=== PATIENT | male | born 2000 | race Caucasian/White ===

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

== ENCOUNTER 2021-10-21 17:07 | Emergency (ER) | payer MEDICAID, SELFPAY ==
[2021-10-21 17:08] VITALS: BP 138/78; PULSE 101; RESP 18; TEMP 36.6; O2SAT 99; BMI 36.6
--- NOTE | 2021-10-21 17:22 | EX.ED.DYSGE1 ---
HPI History of Present Illness Chief Complaint: Nausea/Vomiting Informant: patient Onset/Context/Timing Onset: Today Context: Gradual Onset Current Severity: Mild Maximum Severity: Moderate Narrative Narrative: Patient presents secondary to nausea, vomiting, diarrhea. Symptoms started this morning. He states his sibling recently had similar symptoms and his girlfriend started to develop symptoms as well. No fevers been noted. He complains of pain across the umbilical region of the abdomen. No blood noted in the stool. PFSH PFSH Medical History Anxiety Depression Non-smoker Home Medications dicyclomine 20 mg tablet 20 mg PO TID PRN abdominal cramping #14 tabs 10/21/21 [Rx Last Taken Unknown] omeprazole magnesium 20 mg tablet,delayed release (Prilosec OTC) 20 mg PO DAILY #14 tabs 10/21/21 [Rx Last Taken Unknown] ondansetron 4 mg disintegrating tablet 4 mg PO Q8H PRN nausea and vomiting #10 tabs 10/21/21 [Rx Last Taken Unknown] Allergy/AdvReac Type Severity Reaction Status Date / Time amoxicillin [Amoxicillin] Allergy Hives Verified 10/21/21 17:09 Social History Smoking Status: Never smoker ROS ROS ED Constitutional Constitutional ED: Denies chills or fever(s) Eyes Eyes: Denies change in vision or discharge from eye(s) ENT ENT ED: Denies discharge from eye(s), rhinorrhea or sore throat Cardiovascular Cardiovascular: Denies chest pain or palpitations Respiratory/Chest Respiratory/Chest: Denies cough or dyspnea Gastrointestinal Gastrointestinal: Reports abdominal pain, diarrhea, nausea and vomiting Genitourinary Genitourinary ED: Denies difficulty urinating or dysuria Musculoskeletal Musculoskeletal: Denies back pain or extremity pain Integumentary Denies Abrasions or rash Neurologic Neurologic: Denies headache(s) or weakness Psychiatric Psychiatric: Denies anxiety or depression Allergic/Immunologic Allergic/Immunologic ED: Denies lip swelling or urticaria EXAM Physical Exam Const Vital Signs: 10/21/21 17:08 Temperature 97.9 F Temperature Source Temporal Pulse Rate 101 H Respiratory Rate 18 Blood Pressure 138/78 H Blood Pressure Mean 98 Pulse Ox 99 Oxygen Delivery Method Room Air Positive well nourished and well developed General Appearance ED: well developed HEENT Reports normocephalic and head/scalp atraumatic Eyes PERRL and EOMs intact bilaterally Neck supple Chest Wall inspection of chest normal and palpation of chest normal Resp normal respiratory effort and clear to auscultation bilaterally Cardio regular rate and regular rhythm GI non-tender Auscultation: hypoactive bowel sounds Palpation: soft Extremity normal to inspection Neuro oriented x3 and no sensory deficits noted Sensorium / Orientation: alert Motor Exam: strength 5/5 throughout Psych mental status grossly normal Skin no rashes or lesions noted MDM MDM MDM Narrative Medical decision making narrative: Patient given IV fluids along with Bentyl, Pepcid, Zofran. Lab work and urinalysis obtained. Lab Data Attestation: I reviewed the patient's lab results. Labs: Laboratory Results - last 24 hr 10/21/21 10/21/21 10/21/21 17:30 17:30 17:32 WBC 6.0 RBC 5.55 Hgb 15.2 Hct 46.0 MCV 82.9 MCH 27.4 MCHC 33.0 RDW Std Deviation 38.5 RDW Coeff of David 12.7 Plt Count 263 MPV 10.0 Immature Gran % (Auto) 0.300 Neut % (Auto) 85.1 H Lymph % (Auto) 8.4 L [place] % (Auto) 6.0 Eos % (Auto) 0.0 Baso % (Auto) 0.2 Absolute Neuts (auto) 5.1 Absolute Lymphs (auto) 0.50 L Nucleated RBC % 0 Differential Comment SCANNED Sodium 141 Potassium 3.6 Chloride 106 Carbon Dioxide 29.0 Anion Gap 6 BUN 11 Creatinine 1.06 Estim Creat Clear Calc 113.82 Est GFR (MDRD) Af Amer 113 Est GFR (MDRD) Non-Af 94 BUN/Creatinine Ratio 10.4 Glucose 107 H Calcium 9.2 Total Bilirubin 0.90 Direct Bilirubin 0.21 AST 24 ALT 59 Alkaline Phosphatase 86 Total Protein 7.0 Albumin 4.1 Globulin 2.9 Lipase 96 Urine Color Yellow Urine Clarity Clear Urine pH 6.0 Ur Specific [place] 1.015 Urine Protein 15 H Urine Glucose (UA) Normal Urine Ketones 15 H Urine Occult Blood Negative Urine Nitrite Negative Urine Bilirubin Negative Urine Urobilinogen 1 H Ur Leukocyte Esterase Negative Urine RBC 0-5 SEEN Urine WBC 0-5 SEEN Ur Squamous Epith Cells 0 SEEN Urine Bacteria 1+ Urine Mucus 1+ Treatment and Re-Evaluation Narrative: Lab work is unremarkable. Urinalysis reveals only 15 ketones. On repeat evaluation patient does feel improved. He is tolerating p.o. fluids. He will be given prescriptions for Zofran, Bentyl, Prilosec. Return instructions provided Discharge Plan Triage Chief Complaint: Nausea/Vomiting ED Provider: Radha Ross Dx/Rx/DC Orders Clinical Impression: Viral gastroenteritis Instructions: ED Gastroenteritis, Viral (Adult) Prescriptions: New ondansetron 4 mg tablet,disintegrating 4 mg PO Q8H PRN (Reason: nausea and vomiting) Qty: 10 0RF dicyclomine 20 mg tablet 20 mg PO TID PRN (Reason: abdominal cramping) Qty: 14 0RF omeprazole magnesium [Prilosec OTC] 20 mg tablet,delayed release (DR/EC) 20 mg PO DAILY Qty: 14 0RF Stand Alone Forms: ED Work / School Excuse Primary Care Provider: Josué Tam Referrals: Josué Tam MD [Primary Care Provider] - 3-5 Days if not improving Disposition Disposition: Home, Self Care
[2021-10-21] MEDS: Dicyclomine 20 MG/2 ML Vial IM (17:30)
[2021-10-21] MEDS: Ondansetron 4 MG/2 ML Vial IV (17:30)
[2021-10-21] MEDS: 0.9% Normal Saline 1,000 ML 999 ML IV (17:30)
[2021-10-21] MEDS: Famotidine 200 MG/20 ML MDV 20 MG in 0.9% Normal Saline (Pres. free 8 ML 300 MG IV (17:37)
[2021-10-21 17:38] LABS: Squamous Epithelial Cells - UA 0 SEEN /hpf (0-5)
[2021-10-21 17:39] LABS: Absolute Neutrophil Count 5.1 X10^3/uL (2.0-7.7); Basophil# 0.01 X10^3/uL; Basophil% 0.2 % (0-1); Hemoglobin 15.2 g/dL (13.0-16.5); Lymphocyte % 8.4 % (19-41); Mean Corpuscular Hgb 27.4 pg (27.0-32.0); Mean Corpuscular Volume 82.9 fL (80-94); Monocyte# 0.36 X10^3/uL; NRBC Flagged by Analyzer 0 % (0-5); Neutrophil # 5.08 X10^3/uL (2.7-7.7); Neutrophil % 85.1 % (47-70); POSITIVE DIFFERENTIAL YES; Platelet Count 263 K/mm3 (150-450); RBC Distribution Width CV 12.7 % (11.6-14.6); RBC Distribution Width SD 38.5 fl (35.1-43.9); Red Blood Count 5.55 M/mm3 (4.6-6.2)
[2021-10-21 17:50] LABS: Color, Urine Yellow (Yellow); Glucose, Dipstick Normal (Normal); Ketone-Dipstick 15 mg/dl (Negative); Leukocyte Esterase-Dipstick Negative /ul (Negative); Nitrite-Dipstick Negative (Negative); Occult Blood-Urine Negative /ul (Negative); Protein-Dipstick 15 mg/dl (Negative); Specific Gravity, Urine 1.015 (1.002-1.030); Urine Bilirubin Dipstick Negative (Negative); Urine Clarity Clear (Clear); Urine Urobilinogen 1 mg/dl (Normal)
[2021-10-21 17:57] LABS: AST(SGOT) 24 U/L (15-37); Alanine Aminotransfer ALT/SGPT 59 U/L (16-61); Albumin, Serum 4.1 g/dL (3.2-5.0); Alkaline Phosphatase 86 U/L (45-117); Anion Gap 6 (5-15); BUN 11 mg/dL (7-18); BUN/Creat Ratio 10.4 RATIO (10-20); Bilirubin, Direct 0.21 mg/dL (0.00-0.30); Calcium,Total 9.2 mg/dL (8.5-10.1); Chloride 106 mmol/L (98-107); Creatinine, Serum 1.06 mg/dL (0.70-1.30); EST Glomerular Filtration Rate 94 mL/min (>60); Est Glom Filt Rate - Afr Amer 113 mL/min (>60); Estimated Creatinine Clearance 113.82 ml/min; Globulin 2.9 g/dL (2.2-4.2); Glucose 107 mg/dL (74-106); Lipase 96 U/L (73-393); Potassium 3.6 mmol/L (3.5-5.1); Sodium Level 141 mmol/L (136-145)
[2021-10-21 18:21] LABS: Red Blood Cells-Urine 0-5 SEEN /hpf (0-5)
[2021-10-21 18:22] LABS: Bacteria 1+ /hpf (None Seen); Mucous, Urine 1+ /hpf (<or=2+); White Blood Cells 0-5 SEEN /hpf (0-5)
[2021-10-21 18:53] LABS: Differential Comment SCANNED; Differential Indicated SCAN CRITERIA MET
[2021-10-21 19:10] VITALS: BP 126/74; PULSE 86; RESP 15; O2SAT 100
== END 2021-10-21 19:10 | disposition home or self-care (01) ==
PROVIDERS: Emergency Provider Emergency Medicine; PCP Pediatrics; Visit Provider Emergency Medicine
DX: A08.4 Viral intestinal infection, unspecified (principal)
CPT/HCPCS: 80048; 80076; 81001; 83690; 85025; 96361; 96372; 96374; 96375; 99283; J7030; A4216; J2405; J3490

== ENCOUNTER 2022-03-29 20:02 | Emergency (ER) | payer MEDICAID, SELFPAY ==
[2022-03-29 20:02] VITALS: BP 120/99; PULSE 120; RESP 18; TEMP 36.6; O2SAT 99; BMI 34.4
--- NOTE | 2022-03-29 20:10 | RAD_ITS ---
STUDY: X-RAY - RIGHT KNEE REASON FOR EXAM: Male, 21 years old. INJURY, R knee pain TECHNIQUE: 3 view(s) of the knee. COMPARISON: None. FINDINGS: Normal visualized distal femur. Normal visualized proximal tibia and fibula. Normal proximal tibiofibular articulation. There is no demonstrated fracture. Normal medial femorotibial compartment. Normal lateral femorotibial compartment. Normal patellofemoral articulation. There is no demonstrated joint effusion. The soft tissue structures are unremarkable. RAD/Knee 3 Views IMPRESSION: Normal x-ray examination of the knee. Electronically Signed: Ever Mccoy MD at 20:29 EST ,
--- NOTE | 2022-03-29 20:22 | EDS_ITS ---
HPI History of Present Illness Chief Complaint: Lower Extremity Injury Narrative Narrative: 21-year-old male who denies significant past medical history presents with injury to his right knee. He states he was bowling, threw his ball, then twisted his right knee. He thinks his right knee went inward, and then came back out. He now complains of medial right knee pain that is worse with movement, and difficulty fully extending his knee or fully bending it. He denies falling, hitting his head, or other injury. PFSH PFSH Medical History Anxiety Depression Non-smoker Home Medications dicyclomine 20 mg tablet 20 mg PO TID PRN abdominal cramping #14 tabs 10/21/21 [Rx Last Taken Unknown] omeprazole magnesium 20 mg tablet,delayed release (Prilosec OTC) 20 mg PO DAILY #14 tabs 10/21/21 [Rx Last Taken Unknown] ondansetron 4 mg disintegrating tablet 4 mg PO Q8H PRN nausea and vomiting #10 tabs 10/21/21 [Rx Last Taken Unknown] Allergy/AdvReac Type Severity Reaction Status Date / Time amoxicillin [Amoxicillin] Allergy Hives Verified 03/29/22 20:05 Social History Smoking Status: Never smoker ROS ROS ED ROS Narrative Constitutional: No fever, no chills. HEENT: No sore throat. No neck pain. No loss of vision. No rhinorrhea. Cardiovascular: No chest pain. No palpitations. No pedal edema. Respiratory: No cough, no shortness of breath. Abdominal: No abdominal pain. No nausea. No vomiting. Genitourinary: No dysuria. No hematuria. Musculoskeletal: No myalgias. Right knee pain. Neurologic: No headaches. No dizziness. No lightheadedness. Skin: No rash. No change in color. Psychiatric: No depression. No anxiety. EXAM Physical Exam Narrative Exam Narrative: Afebrile. Vital signs noted. HEENT: Normocephalic. Atraumatic. PERRL, EOMI. Neck soft and supple. No point tenderness or step off. Cardiovascular: Regular rate and rhythm. No murmurs, rubs, or gallops appreciated. Respiratory: No tachypnea. Lungs clear to auscultation bilaterally. Gastrointestinal: Abdomen soft, nontender, with normoactive bowel sounds. No rebound or guarding. Neurological: Awake. Alert. Nonfocal, nonlateralizing. Skin: No rash. Normal color. No pallor. Musculoskeletal: No pedal edema. Flexion and extension mechanism intact right knee. Able to lift leg off bed. Mild tenderness to palpation along right medial collateral ligament and right medial meniscal line. No crepitance. Neur ovascular intact distally with palpable dorsalis pedis pulse. Const Vital Signs: 03/29/22 20:02 Temperature 97.9 F Temperature Source Temporal Pulse Rate 120 H Respiratory Rate 18 Blood Pressure 120/99 H Blood Pressure Mean 106 Pulse Ox 99 Oxygen Delivery Method Room Air MDM MDM MDM Narrative Medical decision making narrative: Nursing protocol ordered knee x-ray in 3 views which was interpreted by myself. Patient declined any oral analgesics. My interpretation of his x-ray shows no acute fracture, no effusion. He was placed in a knee immobilizer. Will take [id number] analgesics and follow-up with his primary care provider in 7 to 10 days. He was also given a pair of crutches because he states he was unable to walk with the knee immobilizer in place. I feel he can be discharged safely home with follow-up. He was referred to the orthopedic surgeon on-call to follow-up with as needed. Disposition is discharged home in stable condition. Radiography Diagnostic Testing: Clinical Impression(s) from Imaging Studies Knee X-Ray 03/29/22 20:10 IMPRESSION: Normal x-ray examination of the knee. Electronically Signed: Ever Mccoy MD at 20:29 EST , Discharge Plan Triage Chief Complaint: Lower Extremity Injury ED Provider: Darwin De La Vega Dx/Rx/DC Orders Clinical Impression: Right knee sprain, Arthralgia of knee, right Instructions: ED Meniscal Injury Knee Poss, ED Knee Sprain Prescriptions: No Action ondansetron 4 mg tablet,disintegrating 4 mg PO Q8H PRN (Reason: nausea and vomiting) Qty: 10 0RF dicyclomine 20 mg tablet 20 mg PO TID PRN (Reason: abdominal cramping) Qty: 14 0RF omeprazole magnesium [Prilosec OTC] 20 mg tablet,delayed release (DR/EC) 20 mg PO DAILY Qty: 14 0RF Stand Alone Forms: ED Work / School Excuse Primary Care Provider: Josué Tam Referrals: Josué Tam MD [Primary Care Provider] - 1 Week if not improving Soto Cassidy DO [Med Staff - Active Staff] - As Needed Disposition Disposition: Home, Self Care
== END 2022-03-29 21:15 | disposition home or self-care (01) ==
PROVIDERS: Emergency Provider Emergency Medicine; PCP Pediatrics; Visit Provider Emergency Medicine
DX: S83.91XA Sprain of unspecified site of right knee, initial encounter (principal); M17.11 Unilateral primary osteoarthritis, right knee; X50.1XXA Overexertion from prolonged static or awkward postures, initial encounter; F41.9 Anxiety disorder, unspecified; F32.9 Major depressive disorder, single episode, unspecified; Z79.899 Other long term (current) drug therapy
CPT/HCPCS: 73562; 99284

== ENCOUNTER → 2022-05-10 | Outpatient (CLI) | payer MEDICAID, SELFPAY ==
--- NOTE | 2022-05-10 07:16 | MRI_ITS ---
STUDY: MRI RIGHT KNEE REASON FOR EXAM: Male, 21 years old. twisting injury, medial pain TECHNIQUE: Standardized fat and water weighted pulse sequences were obtained in all 3 orthogonal planes. COMPARISON: X-ray of the right knee dated March 29, 2022 FINDINGS: There is a large bucket-handle tear involving the anterior horn and body and a portion of the posterior horn of the medial meniscus with a flipped fragment in the intercondylar notch. Normal hyaline cartilage of the medial femorotibial compartment. Normal medial femoral condyle and tibial plateau. Normal medial collateral ligamentous complex (MCL). Normal distal semimembranosus, gracilis and semitendinosus tendons. Normal lateral meniscus. Normal hyaline cartilage of the lateral femorotibial compartment. Normal lateral femoral condyle and tibial plateau. Normal proximal tibiofibular articulation. Normal lateral collateral (fibular) ligament. Normal popliteus tendon. Normal biceps femoris tendon. Normal anterior cruciate ligament (ACL). Normal posterior cruciate ligament (PCL). Normal congruent patellofemoral articulation. Normal hyaline cartilage of the patellofemoral compartment. Normal medial and lateral patellar retinaculum. Normal quadriceps tendon. Normal patellar tendon. Normal Hoffa''s fat pad. There is a small volume joint effusion. No marrow edema or fracture or osteochondral defect is present. The soft tissues are unremarkable. The otherwise visualized osseous structures are unremarkable. MRI/Lower Ext Joint Only (Routine) IMPRESSION: 1. Large bucket-handle tear of the medial meniscus Electronically Signed: Candido Preciado MD at 13:16 EST Reading Location ID and State: [facility] / [place] , Service support ,
== END | disposition home or self-care (01) ==
LOC: MRI 07:16
DX: M23.91 Unspecified internal derangement of right knee (principal)
CPT/HCPCS: 73721

== ENCOUNTER 2022-08-07 17:30 | Outpatient (RCR) | payer MEDICAID, SELFPAY ==
--- NOTE | 2022-06-07 18:53 | HP.PTEVAL ---
Patient's Visit Information SARAH CORONA is a 21 year old M referred to Physical Therapy by SILKE NORTON with a diagnosis of R medial meniscus tear s/p repair 05/24/22. Date of Evaluation: 06/07/22 Physical Therapist: Robin Day, DPT, OCS, CSCS - Visit Plan Frequency: 2-3x /Week Duration: 4-6 Weeks Plan: 2-3x/week for. Start currently 25% WB at most with brace locked until further notice from doctor. Start with ROM R knee to 90 until further notice., swelling management, patellar mobs, NWB strength, 25% WB gait training with crutches. ice. progress as released by doctor WB status, gait, strength and function. - Subjective Hurt R knee bowling months ago. Hurt for 11 months before surgery. Had surgery05/24/22 meniscal repair. Pain intermittent since then. Takes meds and lays down when he hurts but toss and turns. Wearing brace locked in extension. Will need to wear but not sure how long. Has ice machine at home. Using crutches all the time and NWB until further notice. Not sure when follow up and mom not present. Sleep is Ok some of time, decent, getting 2-3 at a time but has late disorder. Employed [employer] in [place] on feet but has been off since a month ago. Estimate time off 3 months. Doing AP at home and icing. Enjoys bowling and video games. No regular exercises when healthy. Basic ADLs dress and shower and bathroom OK except reaching R foot. Is 25% WB R on locked brace with crutches until f/u doctor next week - Pain R knee Pain Intensity (Out of 10): 6 Pain Intensity Range: 0, 6 - Objective Ambulates into PT with brace on and locked in extension and NWB R. Shown 25% WB and could do that with VC today and will work on that when painfree. Up and down steps with two rails NWB R. Transfers bed and chair I but hard time lifting R LE onto bed and painful to lift and to lie supine with extension moment at knee. Needed assist donning and doffing brace as he has not taken it off yet. L LE WNL and 4+ hip strength and ROM. flexibility R is hard to test due to limited ROM. R hip aROM WFL and strength flexion SLR 3- and painful with SLR needing Min A, abd is 3+ and ext 3+. knee flexion and extension not tested. ankle 4-/5 R and L. Swollen at knee R moderately, patella moves well but tender to move. - Balance/Special Test Scores Lower Extremity Functional Score: 27 - Goals Goal 1:: ST: 0-130 AROM as allowed by doctor without pain Goal Time Frame: 4-6 Weeks Goal 2:: Patient able to don and doff socks I Goal Time Frame: 2-4 Weeks Goal 3:: LT: Walks as allowed by doctor without gait deificts in community Goal Time Frame: 4-6 Weeks Goal 4:: Sleep without waking Goal Time Frame: 4-6 Weeks Goal 5:: steps reciprocally without rail Goal Time Frame: 4-6 Weeks Goal 6:: Plan to return to work. Goal Time Frame: 8-12 Weeks - Rehabilitation Potential Physical Therapy Diagnosis: R knee pain and stiffness and weakness after surgery limiting function. Rehabilitation Potential: Fair - Anticipated Interventions Patient/Client Instruction: Educate patient on: Condition, Plan of Care For the Purpose of:: To decrease pain, To increase ROM, To improve muscle performance and motor function, To increase tolerance to activity/condition/position, To improve ability of physical actions for home/community/work/leisure, To improve gait and locomotor functions, To improve balance, To improve safety with gait Therapeutic Exercise to Include: Strength training, Postural training, Flexibilty training, Gait and locomotor training, Passive ROM, Active ROM For the Purpose of:: To decrease pain, To increase ROM, To improve nutrient delivery to tissue, To improve muscle performance and motor function, To increase tolerance to activity/condition/position, To improve ability of physical actions for home/community/work/leisure, To improve gait and locomotor functions Manual Therapy Techniques to Include: Mobilization, Soft tissue mobilization For the Purpose of:: To decrease pain, To increase ROM, To improve nutrient delivery to tissue, To improve muscle performance and motor function Cryotherapy (ice pack, ice massage): Yes Vasopneumatic device: Yes For the Purpose of:: To decrease pain, To decrease swelling/inflammation, To improve nutrient delivery to tissue Thank you for the opportunity to evaluate your patient. For Medicare and Medicare HMO plans, please review the plan of care and approve it. It will need to be FAXED BACK to us at [phone] for Medicare purposes. For Medicare only, by signing this I certify the plan of care. Please let me know if there are questions or concerns regarding this plan of care. Physician Signature: Date:
--- NOTE | 2022-08-07 17:46 | HP.PTDCSUM_ITS ---
It has been my pleasure to treat SARAH CORONA referred by SILKE NORTON, with the diagnosis of R medial meniscus tear s/p repair 05/24/22 for a total of 21 visit(s). Discharge Date: 08/07/22 Please see the following information for a summary of their discharge status. Subjective: Jogged caught in rain without a problem. Activities are normal outs bill of work. hoping to get released right away for work. Feels ready this time to return to work. No brace needed lately. Doing exercises at home including HS, heel raises, SLR, pulling on band, inchworms. Wants to continue strength training at gym but has no money to afford. no car to get there. Wants to bowl eventually and golf. Feels like he can get back to them on his own if released by doctor. R knee Pain Intensity (Out of 10): 0 % Improvement: 95 Objective/Function: 0-140 AROM R knee. 0 ext lag with SLR, strong quad. walks normal, jogs slowly without problems. tight in hips with squat but able without pain 10x today. SL hop slightly less coordinated R vs L but able without pain. Steps reciprocally normally.No evidence of pain or compensation. Doing well. Goal 1:: ST: 0-130 AROM as allowed by doctor without pain Goal Progress: Goal Met Goal 2:: Patient able to don and doff socks I Goal Progress: Goal Met Goal 3:: LT: Walks as allowed by doctor without gait deificts in community Goal Progress: Goal Met Goal 4:: Sleep without waking Goal Progress: Goal Met Goal 5:: steps reciprocally without rail Goal Progress: Goal Met Goal 6:: Plan to return to work. Goal Progress: ready Plan: d/c, pt choice vs continuing for controlled jog, run, plyo, agility. wants to return to work and try on his own. will see doctor next week for release. Discharge Comments: To doctor next week and expecting release to work. If there are questions or concerns regarding this patient's physical therapy, please feel free to call me at [phone]. Thank you for the referral of this patient. Sincerely, Robin Day, DPT, OCS, CSCS Balance/Gait/Functional tests - Balance/Special Test Scores Lower Extremity Functional Score: 67
== END 2022-08-07 19:00 | disposition home or self-care (01) ==
LOC: PT 17:30
DX: S83.211D Bucket-handle tear of medial meniscus, current injury, right knee, subsequent encounter (principal)
CPT/HCPCS: 97110; 97162; 97164

== ENCOUNTER 2023-11-05 17:30 | Emergency (ER) | payer OTHER, SELFPAY ==
[2023-11-05 17:31] VITALS: BP 155/94; PULSE 100; RESP 16; TEMP 36.5; O2SAT 99; BMI 35.8
--- NOTE | 2023-11-05 17:41 | ED.RN ---
[facility]. I WAS INFORMED SHE IS ON HER WAY
--- NOTE | 2023-11-05 20:49 | EDS_ITS ---
HPI History of Present Illness Chief Complaint: Laceration Narrative Narrative: 23-year-old male who denies significant past medical history presents with laceration to his right hand that he sustained at work today. 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 He states that it was then when one of the got me. He had accidentally dragged his right hand, the back of his right hand, across one of the metal parts of the sign stands. He is right-hand dominant. He sustained a laceration on the distal metacarpal of his fifth digit on his right hand. He is unsure of his last tetanus immunization. He denies other injury. [facility] History Anxiety Depression Non-smoker Home Medications ?Medication ?Instructions ?Recorded ?Last Taken ?Type dicyclomine 20 mg tablet 20 mg PO TID PRN abdominal 10/21/21 Unknown Rx cramping #14 tabs omeprazole magnesium 20 mg 20 mg PO DAILY #14 tabs 10/21/21 Unknown Rx tablet,delayed release (Prilosec OTC) ondansetron 4 mg disintegrating 4 mg PO Q8H PRN nausea and 10/21/21 Unknown Rx tablet vomiting #10 tabs Allergy/AdvReac Type Severity Reaction Status Date / Time amoxicillin (Amoxicillin) Allergy Hives Verified 11/05/23 17:31 Social History Smoking Status: Never smoker ROS ROS ED ROS Narrative Focused review of systems: Skin: No rash. No change in color. Positive laceration to dorsum of right hand at base of fifth digit. Musculoskeletal: Positive pain over laceration on dorsum of right hand. EXAM Physical Exam Narrative Exam Narrative: Afebrile. Vital signs noted. Regular rate and rhythm. Lungs clear to auscultation bilaterally. Abdomen soft nontender with normal active bowel sounds. +1.5 cm laceration running vertically on dorsum of left hand on distal metacarpal, at base of fifth digit, no active bleeding. No apparent tendon involvement. It is not all the way through the subcutaneous layer so there is no visualized tendon through full range of motion. Able to oppose thumb. Full range of motion of right wrist. Good capillary refill fifth digit. Const Vital Signs: 11/05/23 17:31 Temperature 97.7 F L Temperature Source Temporal Pulse Rate 100 Respiratory Rate 16 Blood Pressure 155/94 H Blood Pressure Mean 114 Pulse Ox 99 Oxygen Delivery Method Room Air MDM MDM MDM Narrative Medical decision making narrative: I feel that this laceration required suture repair. He was updated on his tetanus immunization. He declined any oral analgesics. He was informed of the risk of infection and scarring and acknowledges an understanding. See procedure note for details. 3 simple interrupted sutures had been placed with 5 point 0 nylon. He is to have the sutures removed in 7 to 10 days. He is referred to the [facility]. He can return to work tomorrow but keep the area clean and dry and covered. Return instructions to the emergency department were reviewed. He had been offered pain medications here in the emergency department, but declined. He states he has naproxen at home. Disposition is discharged home in stable condition. Return instructions have been reviewed. History & Record Review Discussion w/independent historian: Patient Differential Diagnosis Differential Diagnosis: Not applicable Procedures Lacerations Right hand: Length: 0.59 in Depth: Skin Shape: Linear Prep: Sterile Conditions and Shure-Clens Laceration repair: Lidocaine, Local and Skin sutures (3 simple interrupted) Number of Sutures/Radha: 3 Suture Information: Ethilon and 5-0 Comment: Patient tolerated procedure well. No tendon involvement apparent through full range of motion fifth digit. Discharge Plan Triage Chief Complaint: Laceration ED Provider: Darwin De La Vega Dx/Rx/DC Orders Clinical Impression: Laceration of hand, right Instructions: ED Laceration, Hand: All Closures Prescriptions: No Action ondansetron 4 mg tablet,disintegrating 4 mg PO Q8H PRN (Reason: nausea and vomiting) Qty: 10 0RF dicyclomine 20 mg tablet 20 mg PO TID PRN (Reason: abdominal cramping) Qty: 14 0RF omeprazole magnesium [Prilosec OTC] 20 mg tablet,delayed release (DR/EC) 20 mg PO DAILY Qty: 14 0RF Primary Care Provider: Care Physician,No Primary Referrals: Care Physician,No Primary [Primary Care Provider] - [facility] [Non-Staff] - 7 Days for suture removal Activity Restrictions/Additional Instructions: Keep injured area covered and dry. Follow-up with the [facility] clinic or a [facility] provider of your choice in 7 to 10 days for suture removal. You may take [id number] medications like naproxen or Tylenol as needed for pain. Print Language: [place] Disposition Disposition: Home, Self Care
[2023-11-05] MEDS: Diphth,Pertuss(Acell),Tet Vac 0.5 ML Vial IM (21:37)
[2023-11-05] MEDS: Lidocaine 1% (20 ml mdv) 20 ML Vial INFILT (21:37)
== END 2023-11-05 21:44 | disposition home or self-care (01) ==
LOC: ED 21:36
PROVIDERS: Emergency Provider Emergency Medicine; Visit Provider Emergency Medicine
DX: S61.411A Laceration without foreign body of right hand, initial encounter (principal); W26.8XXA Contact with other sharp object(s), not elsewhere classified, initial encounter; Z23 Encounter for immunization
CPT/HCPCS: 12001; 90471; 90715; 99283